=== PATIENT | male | born 1950 | race Caucasian/White ===

== ENCOUNTER → 2017-01-05 | Outpatient (CLI) | payer OTHER, MEDICARE ==
[~2017-01-05] MED LIST: ACET-1256 PO; AMLO-114 PO; BNC/40 PO; CIPR-255 PO; DILT-117 PO; DUTA0.5C PO; FINA5TAB PO; METO-649 PO; MULT-506 PO; OXYC1TAB3 PO; WARF7.5T4 PO
--- NOTE | 2017-01-05 15:27 | DIAGNOSTIC IMAGING REPORT ---
[facility]UB CLINICAL HISTORY: Prostate cancer screening. History of nephrolithiasis. FINDINGS: 2 AP abdominal radiographs are compared to study dated 01/02/2016 and correlated with abdominal CT dated 03/26/15.There is no radiographic evidence of nephrolithiasis on today's examination. There is a nonobstructed abdominal bowel gas pattern. The skeletal structures are osteopenic. Lumbosacral spondylosis is observed. A bone island is again noted in the right iliac wing. IMPRESSION: There is no radiographic evidence of nephrolithiasis on today's examination. Electronically signed by: Lg Jones M.D. 01/05/2017 3:25 PM Dictated Date/Time: 01/05/2017 2:12 PM
== END | disposition home or self-care (01) ==
LOC: C.RAD 09:56
PROVIDERS: ATTEND Urology
DX: Z12.5 Encounter for screening for malignant neoplasm of prostate (principal); N20.0 Calculus of kidney